=== PATIENT | male | born 1960 | race Caucasian/White ===

== ENCOUNTER → 2017-10-15 07:47 | Outpatient (CLI) | payer BC, SELFPAY ==
[2017-10-15 09:45] LABS: Add Manual Diff / Slide Review NO; Basophils Percent Auto 0.6 % (0-2); Eosinophils Percent Auto 2.9 % (2-4); Hematocrit 42.5 % (41-53); Hemoglobin 14.3 g/dL (13.5-17.5); Lymphocytes Percent Auto 23.8 % (25-40); Mean Corpuscular HGB Conc 33.6 % (30-36); Mean Corpuscular Hemoglobin 31.5 PG (26-34); Mean Corpuscular Volume 93.7 fL (80-100); Monocytes Percent Auto 7.4 % (3-14); Neutrophils Absolute Auto 5800 /uL (3000-5900); Neutrophils Percent Auto 65.3 % (50-75); Platelet Count 264 X10^3/uL (150-400); Red Blood Cell Count 4.54 X10^6/uL (4.5-5.9); Red Cell Distribution Width 13.9 % (11.6-14.8); White Blood Cell Count 8.9 X10^3/uL (4.5-11.0)
[2017-10-15 10:18] LABS: Prostate Specific Antigen Scrn 0.905 ng/mL (0.1-4.0); Thyroid Stimulating Hormone 2.57 uIU/mL (0.47-4.68)
== END ==
PROVIDERS: PCP Family Medicine; Visit Provider Family Medicine
DX: E11.40 Type 2 diabetes mellitus with diabetic neuropathy, unspecified (principal); Z79.4 Long term (current) use of insulin; I10 Essential (primary) hypertension; E78.5 Hyperlipidemia, unspecified; Z12.5 Encounter for screening for malignant neoplasm of prostate
CPT/HCPCS: 36415; 84443; 85025; G0103

== ENCOUNTER → 2017-10-19 17:36 | Outpatient (CLI) | payer BC, SELFPAY ==
[2017-10-19 18:18] LABS: Alanine Aminotransferase 35 IU/L (21-72); Albumin 4.2 g/dL (3.5-5.0); Albumin Globulin Ratio 1.4 (1.0-2.8); Alkaline Phosphatase 53 U/L (38-126); Aspartate Aminotransferase 32 IU/L (17-59); BUN Creatinine Ratio 35.7 (6-22); Bilirubin Total 0.5 mg/dL (0.2-1.3); Blood Urea Nitrogen 25 mg/dL (9-20); Calcium 9.6 mg/dL (8.4-10.2); Carbon Dioxide 26 mmol/L (22-32); Chloride 105 mmol/L (98-107); Cholesterol 160 mg/dL (140-199); Estimated Glomerular Filt Rate > 60.0 mL/min (>60); Glucose 71 mg/dL (70-100); HDL Cholesterol 74 mg/dL (40-60); HEMOLYSIS 22 (0-50); LDL Cholesterol Calculated 61 mg/dL (<100); Potassium 4.5 mmol/L (3.4-5.1); Sodium 140 mmol/L (137-145); Total Protein 7.2 g/dL (6.3-8.2); Triglycerides 124 mg/dL (35-150)
[2017-10-19 18:19] LABS: Hemoglobin A1C% w Est Avg Glu 6.3 % (4.0-6.0)
== END ==
PROVIDERS: PCP Family Medicine; Visit Provider Family Medicine
DX: I10 Essential (primary) hypertension (principal); E11.40 Type 2 diabetes mellitus with diabetic neuropathy, unspecified; Z79.4 Long term (current) use of insulin; E78.5 Hyperlipidemia, unspecified
CPT/HCPCS: 80053; 80061; 83036

== ENCOUNTER → 2018-03-13 15:31 | Outpatient (CLI) | payer BC, SELFPAY | PROVIDERS: PCP Family Medicine; Visit Provider Physician Assistant | DX: L97.519 Non-pressure chronic ulcer of other part of right foot with unspecified severity (principal) | CPT/HCPCS: 87070; 87075; 87077; 87147; 87186; 87205 ==

== ENCOUNTER → 2018-03-15 09:59 | Outpatient (CLI) | payer BC, SELFPAY | PROVIDERS: PCP Family Medicine; Referring Provider Physician Assistant; Visit Provider Family Medicine | DX: E11.621 Type 2 diabetes mellitus with foot ulcer (principal); L97.516 Non-pressure chronic ulcer of other part of right foot with bone involvement without evidence of necrosis | CPT/HCPCS: 11042; 99213; 99214 ==

== ENCOUNTER → 2018-03-17 10:55 | Outpatient (CLI) | payer BC, SELFPAY ==
--- NOTE | 2018-03-17 | DI.RAD.S_ITS ---
PROCEDURE: XR TOE RT MIN 2V INDICATIONS: RIGHT TOE PAIN TECHNIQUE: Single views of the right second toe(s) acquired. COMPARISON: [facility], , TOE MINIMUM 2 VIEWS RIGHT, 05/28/2016, 10:15. FINDINGS: Bones: Mild cortical irregularity is present at the distal aspect of the distal phalanx of the right second digit. However, this is incompletely characterized on Limited anterior view. Soft tissues: No suspicious soft tissue densities. IMPRESSION: 1. Questionable cortical irregularity of the distal phalanx of the right second digit; however lateral view would be helpful to further characterize findings evaluate for true bony abnormality. Alternatively, if there is a high clinical suspicion for osteomyelitis, MRI of the foot with and without contrast is recommended. Dictated by: Kristine Recinos M.D. on 03/17/2018 at 13:33 Approved by: Kristine Recinos M.D. on 03/17/2018 at 13:35
[2018-03-17 12:07] LABS: Add Manual Diff / Slide Review NO; Basophils Percent Auto 0.6 % (0-2); Eosinophils Percent Auto 2.1 % (2-4); Hematocrit 45.1 % (41-53); Hemoglobin 15.4 g/dL (13.5-17.5); Lymphocytes Percent Auto 25.9 % (25-40); Mean Corpuscular HGB Conc 34.1 % (30-36); Mean Corpuscular Hemoglobin 32.1 PG (26-34); Mean Corpuscular Volume 94.1 fL (80-100); Monocytes Percent Auto 7.8 % (3-14); Neutrophils Absolute Auto 5800 /uL (1500-7000); Neutrophils Percent Auto 63.6 % (50-75); Platelet Count 291 X10^3/uL (150-400); Red Cell Distribution Width 13.3 % (11.6-14.8); White Blood Cell Count 9.1 X10^3/uL (4.5-11.0)
[2018-03-17 12:22] LABS: Hemoglobin A1C% w Est Avg Glu 6.9 % (4.0-6.0)
[2018-03-17 12:23] LABS: Erythrocyte Sedimentation Rate 8 MM/HR (0-15)
[2018-03-17 12:25] LABS: Alanine Aminotransferase 43 IU/L (21-72); Albumin 4.6 g/dL (3.5-5.0); Albumin Globulin Ratio 1.4 (1.0-2.8); Alkaline Phosphatase 56 U/L (38-126); Aspartate Aminotransferase 38 IU/L (17-59); BUN Creatinine Ratio 26.4 (6-22); Bilirubin Total 0.6 mg/dL (0.2-1.3); Blood Urea Nitrogen 29 mg/dL (9-20); Calcium 10.3 mg/dL (8.4-10.2); Carbon Dioxide 25 mmol/L (22-32); Chloride 99 mmol/L (98-107); Estimated Glomerular Filt Rate > 60.0 mL/min (>60); Globulin 3.3 g/dL (1.7-4.1); Glucose 132 mg/dL (70-100); HEMOLYSIS < 15 (0-50); Potassium 4.8 mmol/L (3.4-5.1); Sodium 139 mmol/L (137-145); Total Protein 7.9 g/dL (6.3-8.2)
[2018-03-17 12:26] LABS: C-Reactive Protein Quant < 0.5 mg/dL (<1.0)
[2018-03-17 12:30] LABS: Prealbumin 36.3 mg/dL (17.6-36.0)
== END ==
PROVIDERS: PCP Family Medicine; Visit Provider Family Medicine
DX: E11.621 Type 2 diabetes mellitus with foot ulcer (principal)
CPT/HCPCS: 36415; 73660; 80053; 83036; 84134; 85025; 85651; 86140

== ENCOUNTER → 2018-03-22 09:51 | Outpatient (CLI) | payer BC, SELFPAY | PROVIDERS: PCP Family Medicine; Visit Provider Family Medicine | DX: E11.622 Type 2 diabetes mellitus with other skin ulcer (principal); E11.40 Type 2 diabetes mellitus with diabetic neuropathy, unspecified; L97.416 Non-pressure chronic ulcer of right heel and midfoot with bone involvement without evidence of necrosis | CPT/HCPCS: 11042 ==

== ENCOUNTER → 2018-03-29 09:58 | Outpatient (CLI) | payer BC, SELFPAY | PROVIDERS: PCP Family Medicine; Visit Provider Family Medicine | DX: E11.621 Type 2 diabetes mellitus with foot ulcer (principal); E11.40 Type 2 diabetes mellitus with diabetic neuropathy, unspecified; L97.516 Non-pressure chronic ulcer of other part of right foot with bone involvement without evidence of necrosis; Z79.2 Long term (current) use of antibiotics | CPT/HCPCS: 36415; 80048; 97597 ==

== ENCOUNTER → 2018-03-29 10:59 | Outpatient (CLI) | payer BC, SELFPAY | PROVIDERS: PCP Family Medicine; Visit Provider Family Medicine | DX: Z79.2 Long term (current) use of antibiotics (principal) ==

== ENCOUNTER → 2018-03-29 11:02 | Outpatient (CLI) | payer BC, SELFPAY ==
[2018-03-29 11:49] LABS: BUN Creatinine Ratio 23.8 (6-22); Blood Urea Nitrogen 31 mg/dL (9-20); Calcium 11.9 mg/dL (8.4-10.2); Carbon Dioxide 23 mmol/L (22-32); Chloride 102 mmol/L (98-107); Estimated Glomerular Filt Rate 56.7 mL/min (>60); Glucose 147 mg/dL (70-100); HEMOLYSIS < 15 (0-50); Potassium 5.9 mmol/L (3.4-5.1); Sodium 140 mmol/L (137-145)
== END ==
PROVIDERS: PCP Family Medicine; Visit Provider Family Medicine
DX: Z79.2 Long term (current) use of antibiotics (principal)
CPT/HCPCS: 36415; 80048

== ENCOUNTER → 2018-04-03 10:17 | Outpatient (CLI) | payer BC, SELFPAY ==
[2018-04-03 11:39] LABS: BUN Creatinine Ratio 29.1 (6-22); Blood Urea Nitrogen 32 mg/dL (9-20); Estimated Glomerular Filt Rate > 60.0 mL/min (>60)
== END ==
PROVIDERS: Family Provider Family Medicine; PCP Family Medicine; Visit Provider Family Medicine
DX: L97.519 Non-pressure chronic ulcer of other part of right foot with unspecified severity (principal); E11.621 Type 2 diabetes mellitus with foot ulcer
CPT/HCPCS: 36415; 82565; 84520

== ENCOUNTER → 2018-04-05 08:07 | Outpatient (CLI) | payer BC, SELFPAY ==
--- NOTE | 2018-04-05 | DI.MRI.S_ITS ---
PROCEDURE: MR FOOT RT WO/W CON INDICATIONS: Non-pressure chronic ulcer of other part of right TECHNIQUE: Noncontrast sagittal T1 spin echo and T2 fast spin echo with fat saturation, long-axis T1 spin echo and T2 fast spin echo with fat saturation; short-axis T1 spin echo, proton density fast spin echo, and T2 fast spin echo with fat saturation through the forefoot. Post-contrast short axis, long axis, and sagittal T1 spin echo with fat saturation through the forefoot. COMPARISON: None. FINDINGS: Image quality: Excellent. Bones and joints: There is marrow edema involving second middle and distal phalanges suspicious for osteomyelitis in second toe. No gross bone erosive changes are seen. No other area of abnormal marrow signal is noted. The sesamoid bones appear in expected positions, without internal edema. Osteoarthritic changes throughout forefoot joint are seen. Osteophytic change is also noted as well visualized portion of the midfoot joints. No intraosseous lesions. Soft tissues: Ulceration over the plantar aspect of second middle and distal phalanges is seen with mild soft tissue enhancement in this area consistent with cellulitis. No discrete drainable fluid collection is identified. The visualized plantar foot muscles demonstrate normal signal and bulk. Visualized flexor and extensor tendons appear intact, without tenosynovitis. The distal insertions of the peroneus brevis and longus tendons appear intact. The principal Lisfranc ligament appears intact. No soft tissue ganglion cysts or bursal fluid collections. Sagittal images demonstrate no evidence for plantar plate tears. IMPRESSION: 1. Ulceration over the plantar aspect of distal second toe with surrounding soft tissue cellulitis. No drainable fluid collection or gross soft tissue mass. 2. Suggestion of osteomyelitis involving adjacent second middle and distal phalanges. No bone erosion. No fracture or dislocation. Dictated by: Luiz Combs M.D. on 04/05/2018 at 16:25 Approved by: Luiz Combs M.D. on 04/05/2018 at 16:28
[2018-04-05 13:05] LABS: BUN Creatinine Ratio 26.7 (6-22); Blood Urea Nitrogen 24 mg/dL (9-20); Calcium 9.6 mg/dL (8.4-10.2); Carbon Dioxide 25 mmol/L (22-32); Chloride 100 mmol/L (98-107); Estimated Glomerular Filt Rate > 60.0 mL/min (>60); Glucose 86 mg/dL (70-100); HEMOLYSIS < 15 (0-50); Potassium 5.1 mmol/L (3.4-5.1); Sodium 137 mmol/L (137-145)
[2018-04-05 13:17] LABS: Hemoglobin A1C% w Est Avg Glu 6.7 % (4.0-6.0)
== END ==
PROVIDERS: Family Provider Family Medicine; PCP Family Medicine; Visit Provider Family Medicine
DX: E11.621 Type 2 diabetes mellitus with foot ulcer (principal); L97.516 Non-pressure chronic ulcer of other part of right foot with bone involvement without evidence of necrosis; E11.40 Type 2 diabetes mellitus with diabetic neuropathy, unspecified; I10 Essential (primary) hypertension
CPT/HCPCS: 36415; 73720; 80048; 83036; A9579

== ENCOUNTER → 2018-04-05 10:50 | Outpatient (CLI) | payer BC, SELFPAY | PROVIDERS: Family Provider Family Medicine; PCP Family Medicine; Visit Provider Family Medicine | DX: E11.621 Type 2 diabetes mellitus with foot ulcer (principal); E11.40 Type 2 diabetes mellitus with diabetic neuropathy, unspecified; L97.516 Non-pressure chronic ulcer of other part of right foot with bone involvement without evidence of necrosis; L84 Corns and callosities | CPT/HCPCS: 97597; 99213 ==

== ENCOUNTER → 2018-04-12 13:31 | Outpatient (CLI) | payer BC, SELFPAY | PROVIDERS: Family Provider Family Medicine; PCP Family Medicine; Visit Provider Family Medicine | DX: Z48.817 Encounter for surgical aftercare following surgery on the skin and subcutaneous tissue (principal); L03.031 Cellulitis of right toe; E11.9 Type 2 diabetes mellitus without complications; I10 Essential (primary) hypertension | CPT/HCPCS: 99213 ==

== ENCOUNTER → 2018-04-19 13:33 | Outpatient (CLI) | payer BC, SELFPAY ==
[2018-04-19 15:57] LABS: Blood Urea Nitrogen 15 mg/dL (9-20); Calcium 9.5 mg/dL (8.4-10.2); Carbon Dioxide 24 mmol/L (22-32); Chloride 101 mmol/L (98-107); Estimated Glomerular Filt Rate > 60.0 mL/min (>60); Glucose 92 mg/dL (70-100); HEMOLYSIS < 15 (0-50); Sodium 136 mmol/L (137-145)
== END ==
PROVIDERS: Family Medicine; Family Provider Family Medicine; PCP Family Medicine; Visit Provider Podiatrist
DX: E87.5 Hyperkalemia (principal); Z79.2 Long term (current) use of antibiotics
CPT/HCPCS: 36415; 80048

== ENCOUNTER → 2018-04-24 14:22 | Outpatient (CLI) | payer BC, SELFPAY ==
[2018-04-27 19:35] LABS: Fecal Immunochemical Test NOT DETECTED
== END ==
PROVIDERS: PCP Family Medicine; Visit Provider Family Medicine
DX: Z12.11 Encounter for screening for malignant neoplasm of colon (principal); Z12.12 Encounter for screening for malignant neoplasm of rectum
CPT/HCPCS: 82274

== ENCOUNTER 2018-05-04 06:19 | Day surgery (SDC) | payer BC, SELFPAY ==
[2018-04-21 13:17] VITALS: BMI 37.4
[2018-05-04] VITALS (7 sets, daily range): BP systolic 138–165; BP diastolic 77–91; PULSE 58–71; RESP 13–17; TEMP 36.1–36.9; O2SAT 94–97; BMI 37.4
--- NOTE | 2018-05-04 | PATH_ITS ---
[facility] Accession Number: [id number] . 01 Material submitted: . RIGHT 2ND TOE, DISTAL PHALANX . 01 Clinical history: . OSTEOMYELITIS . 02 Diagnosis: Right Second Toe, Distal Phalanx, Disarticulation: 1. Mild chronic inflammation and reactive osseous and soft tissue changes. 2. Skin margin and proximal bone appear viable. 3. Negative for granulocytic inflammation/acute osteomyelitis. MRV/05/09/2018 . 02 Electronically signed: . Bindu Garces MD, Pathologist NPI- [id number] . 01 Gross description: . Received in formalin, labeled right second toe distal phalanx osteomyelitis, is a disarticulated toe (2.8 cm AP, 1.9 cm SI, 1.9 cm ML). The toenail is present. A pineda-dasilva crusted over ulcer (0.4 x 0.2 cm) is identified on the supramedial aspect of the anterior tip of the toe located 0.8 cm inferior to the toenail, 3.3 cm from the superior and 1.5 cm from the inferior skin and soft tissue resection margins. The remaining skin is brown smooth and shiny. The underlying bone is hard and cannot be sliced with a scalpel. Ink code: black-superior; orange-inferior. Section code: (A1) skin and soft tissue resection margins, food service representative; (A2) proximal bone, food service representative serial sections; (A3) ulcer, food service representative serial sections; (A4) bone underlying ulcer, food service representative serial section. Note: The bone sections have been decalcified. ([id number]) /[facility] . 02 Pathologist provided ICD-10: M86.671 . 02 CPT . 301632 Performed at: 01 [facility] [address] [place] [address], [place], [place] [id number] MD Sy Canseco MD Phone: [phone] Performed at: [facility] [address] [place], [place] [id number] MD Bindu Garces MD Phone: [phone]
[2018-05-04] MEDS: LACTATED RINGERS 1,000 ML 42 ML IV (07:32)
[2018-05-04] MEDS: CEFAZOLIN 2 GM/100 ML FROZ.PIGGY IV (07:40)
[2018-05-04] MEDS: LIDOCAINE 2% W/EPI INJ 6 ML INJ (08:23)
[2018-05-04] MEDS: LIDOCAINE 2% INJ SDV 5 ML INJ (08:25)
[2018-05-04] MEDS: BUPIVACAINE 0.5% (PF) VIAL 8 ML INJ (08:31)
--- NOTE | 2018-05-04 08:43 | PM.OP.1 ---
Procedure & Clinicians Procedure: Partial amputation, 2nd toe, right foot Hammertoe repair, PIPJ, 3rd toe, right foot Same procedure as scheduled: Yes Indications: osteomyelitis 2nd toe, hammertoe 3rd toe, all on right foot Surgeon: Jean Reynolds Click Yes if Unassisted: Yes Anesthesia Type: General and Local Operative Notes Closure Type: primary Specimen(s): other (distal 2nd toe right foot to pathology) Estimated Blood Loss (mL): 3 Blood products transfused: none Tourniquet time (min): 0 Procedure in detail: Indications: The patient has suffered osteomyelitis in the distal aspect of his 2nd toe right due to a chronic diabetic neuropathic ulcer. Although the wound was closed, decision was made for definitive amputation of the osteomyelitic bone. Also, chronic 3rd hammertoe was corrected at the same setting. Operation: The patient was taken from the day surgery area back to the operating room after having been given IV antibiotic prophylaxis. He was placed on the OR table in the supine position. General anesthesia was induced by the anesthesiologist, followed by local infiltration of 50 50 lidocaine. The foot was then prepped and draped in the usual sterile fashion from toe to knee. Procedure 1 distal amputation, 2nd toe right foot Attention was directed toward the base of the 2nd toe. Just proximal to the PIP joint a modified racquet shaped incision was created. A longer plantar flap was created. Dissection was carried down to the extensor and flexor tendons which were put under tension and severed. There was very little bleeding. Once the proximal phalanx was identified the distal 6 mm was transversely section with the bone-cutting forceps. The bone was found to be very hard and brittle. The wound was irrigated. Closure was then performed with combination of horizontal mattress and simple interrupted sutures of 3 0 nylon. Procedure to hammertoe repair, 3rd toe right Attention was then directed for the 3rd toe. A dorsal midline incision was made centered over the PIP joint. Dissection was carried down the extensor tendon which was transversely section delivering the PIP joint. Collateral ligaments were released and then the head of the proximal phalanx removed with a bone-cutting forceps. The wound was irrigated with antibiotic solution. Extensor tendon was repaired with 4 O Vicryl and then the skin closed with 4 0 nylon. Postop block of 0.5% Marcaine plain was administered to both wounds. Sterile compression bandage was then applied. The patient tolerated the procedures and anesthesia well without any apparent complications. He left the OR with vital signs stable and digital perfusion intact. He will be allowed weight-bearing, protected in a postop shoe. Will be seen for follow-up check next week in the [place] office. Complications: none Condition: stable Disposition: same day surgery Plan for aftercare: Follow-up visit already set for the [place] office next week.
--- NOTE | 2018-05-04 09:15 | SUR.PHASEII ---
PT ARRIVED TO PHASE II VIA STRETCHER. PT SITTING UP, ALERT AND TALKING TO RN. PT DRINKING COFFEE. PT DENIES ANY PAIN/DISCOMFORT OR NAUSEA. DRSG TO SURGICAL FOOT C/D/I. PT ABLE TO MOVE FOOT/TOES, +SENSTATION AND WARM TO TOUCH. PT AWAITING ARRIVAL OF RIDE AT THIS TIME. BED IN LOWEST POSITION AND CALL LIGHT GIVEN TO PT. PT APPEARS COMFORTABLE AT THIS TIME.
== END 2018-05-04 10:13 ==
LOC: OR 06:20
PROVIDERS: Family Provider Family Medicine; PCP Family Medicine; Visit Provider Podiatrist
PROC: (CPT 28285; principal; 2018-05-04 07:45)
PROC: (CPT 28285; 2018-05-04 07:45)
DX: M86.671 Other chronic osteomyelitis, right ankle and foot (principal); M20.41 Other hammer toe(s) (acquired), right foot; L97.519 Non-pressure chronic ulcer of other part of right foot with unspecified severity; E11.621 Type 2 diabetes mellitus with foot ulcer; E11.40 Type 2 diabetes mellitus with diabetic neuropathy, unspecified; Z79.4 Long term (current) use of insulin
CPT/HCPCS: 28285; 28825; J0690; J2405; J2704; J3010

== ENCOUNTER → 2018-06-02 09:59 | Outpatient (CLI) | payer BC, SELFPAY ==
[2018-06-02 10:41] LABS: Add Manual Diff / Slide Review NO; Basophils Absolute Auto 100 /uL (0-100); Basophils Percent Auto 0.8 % (0-2); Eosinophils Absolute Auto 200 /uL (0-450); Eosinophils Percent Auto 2.7 % (2-4); Hematocrit 43.4 % (41-53); Hemoglobin 14.6 g/dL (13.5-17.5); Lymphocytes Absolute Auto 2200 /uL (1100-4500); Lymphocytes Percent Auto 26.6 % (25-40); Mean Corpuscular HGB Conc 33.7 % (30-36); Mean Corpuscular Hemoglobin 32.1 PG (26-34); Mean Corpuscular Volume 95.1 fL (80-100); Monocytes Absolute Auto 800 /uL (0-900); Monocytes Percent Auto 9.6 % (3-14); Neutrophils Absolute Auto 5000 /uL (1500-7000); Neutrophils Percent Auto 60.3 % (50-75); Platelet Count 264 X10^3/uL (150-400); Red Blood Cell Count 4.57 X10^6/uL (4.5-5.9); Red Cell Distribution Width 14.4 % (11.6-14.8); White Blood Cell Count 8.2 X10^3/uL (4.5-11.0)
[2018-06-02 11:23] LABS: Alanine Aminotransferase 32 IU/L (21-72); Albumin 4.7 g/dL (3.5-5.0); Albumin Globulin Ratio 1.4 (1.0-2.8); Alkaline Phosphatase 57 U/L (38-126); Aspartate Aminotransferase 32 IU/L (17-59); Blood Urea Nitrogen 27 mg/dL (9-20); Calcium 9.5 mg/dL (8.4-10.2); Carbon Dioxide 27 mmol/L (22-32); Chloride 98 mmol/L (98-107); Cholesterol 205 mg/dL (140-199); Estimated Glomerular Filt Rate > 60.0 mL/min (>60); Globulin 3.3 g/dL (1.7-4.1); Glucose 174 mg/dL (70-100); HDL Cholesterol 92 mg/dL (40-60); HEMOLYSIS < 15 (0-50); LDL Cholesterol Calculated 88 mg/dL (<100); Potassium 4.9 mmol/L (3.4-5.1); Sodium 137 mmol/L (137-145); Triglycerides 127 mg/dL (35-150)
== END ==
PROVIDERS: PCP Family Medicine; Visit Provider Family Medicine
DX: E11.40 Type 2 diabetes mellitus with diabetic neuropathy, unspecified (principal); I10 Essential (primary) hypertension; I73.9 Peripheral vascular disease, unspecified
CPT/HCPCS: 36415; 80053; 80061; 85025

== ENCOUNTER → 2018-07-07 09:01 | Outpatient (CLI) | payer BC, SELFPAY ==
[2018-07-07 10:04] LABS: Hemoglobin A1C% w Est Avg Glu 5.6 % (4.0-6.0)
[2018-07-07 10:27] LABS: BUN Creatinine Ratio 23.8 (6-22); Blood Urea Nitrogen 19 mg/dL (9-20); Calcium 9.4 mg/dL (8.4-10.2); Carbon Dioxide 27 mmol/L (22-32); Chloride 102 mmol/L (98-107); Estimated Glomerular Filt Rate > 60.0 mL/min (>60); Glucose 150 mg/dL (70-100); HEMOLYSIS < 15 (0-50); Potassium 4.8 mmol/L (3.4-5.1); Sodium 137 mmol/L (137-145)
== END ==
PROVIDERS: PCP Family Medicine; Visit Provider Family Medicine
DX: E11.40 Type 2 diabetes mellitus with diabetic neuropathy, unspecified (principal)
CPT/HCPCS: 36415; 80048; 83036

== ENCOUNTER → 2018-11-01 10:41 | Outpatient (CLI) | payer BC, SELFPAY ==
[2018-11-01 11:50] LABS: BUN Creatinine Ratio 31.3 (6-22); Blood Urea Nitrogen 25 mg/dL (9-20); Calcium 9.9 mg/dL (8.4-10.2); Carbon Dioxide 20 mmol/L (22-32); Chloride 103 mmol/L (98-107); Estimated Glomerular Filt Rate > 60.0 mL/min (>60); Glucose 64 mg/dL (70-100); HEMOLYSIS < 15 (0-50); Potassium 4.9 mmol/L (3.4-5.1); Sodium 139 mmol/L (137-145)
== END ==
PROVIDERS: PCP Family Medicine; Visit Provider Family Medicine
DX: I10 Essential (primary) hypertension (principal); E11.40 Type 2 diabetes mellitus with diabetic neuropathy, unspecified
CPT/HCPCS: 36415; 80048; 83036

== ENCOUNTER → 2019-03-09 10:23 | Outpatient (CLI) | payer BC, SELFPAY ==
[2019-03-09 11:21] LABS: Hemoglobin A1C% w Est Avg Glu 6.7 % (4.0-6.0)
[2019-03-09 11:48] LABS: Creatinine Urine Random 56.3 mg/dL
[2019-03-09 11:56] LABS: BUN Creatinine Ratio 32.2 (6-22); Blood Urea Nitrogen 29 mg/dL (9-20); Calcium 9.3 mg/dL (8.4-10.2); Carbon Dioxide 25 mmol/L (22-32); Chloride 102 mmol/L (98-107); Estimated Glomerular Filt Rate > 60.0 mL/min (>60); Glucose 189 mg/dL (70-100); HEMOLYSIS < 15 (0-50); Potassium 4.9 mmol/L (3.4-5.1); Sodium 137 mmol/L (137-145)
[2019-03-09 12:18] LABS: Microalbumi Creatinin Ratio Ur 1420.9 ug/mg CR (<30)
== END ==
PROVIDERS: PCP Family Medicine; Visit Provider Family Medicine
DX: E11.40 Type 2 diabetes mellitus with diabetic neuropathy, unspecified (principal); I10 Essential (primary) hypertension
CPT/HCPCS: 36415; 80048; 82043; 82570; 83036

== ENCOUNTER → 2019-05-16 18:11 | Outpatient (CLI) | payer BC, SELFPAY ==
[2019-05-16 18:48] LABS: Influenza A - CEPHEID Flu A POSITIVE (NEGATIVE); Influenza B - CEPHEID Flu B NEGATIVE (NEGATIVE)
== END ==
PROVIDERS: PCP Family Medicine; Visit Provider Physician Assistant
DX: R68.89 Other general symptoms and signs (principal)
CPT/HCPCS: 87502

== ENCOUNTER → 2019-07-11 08:45 | Outpatient (CLI) | payer BC, SELFPAY ==
[2019-07-11 10:45] LABS: Hemoglobin A1C% w Est Avg Glu 6.2 % (4.0-6.0)
[2019-07-11 11:13] LABS: Alanine Aminotransferase 26 IU/L (<50); Albumin 4.2 g/dL (3.5-5.0); Albumin Globulin Ratio 1.2 (1.0-2.8); Alkaline Phosphatase 55 U/L (38-126); Aspartate Aminotransferase 32 IU/L (17-59); BUN Creatinine Ratio 41.6 (6-22); Bilirubin Total 0.3 mg/dL (0.2-1.3); Blood Urea Nitrogen 32 mg/dL (9-20); Calcium 9.3 mg/dL (8.4-10.2); Carbon Dioxide 23 mmol/L (22-32); Chloride 106 mmol/L (98-107); Cholesterol 174 mg/dL (140-199); Estimated Glomerular Filt Rate > 60.0 mL/min (>60); Globulin 3.5 g/dL (1.7-4.1); Glucose 120 mg/dL (80-110); HDL Cholesterol 83 mg/dL (40-60); HEMOLYSIS < 15 (0-50); LDL Cholesterol Calculated 74 mg/dL (<100); Potassium 4.4 mmol/L (3.4-5.1); Sodium 138 mmol/L (137-145); Total Protein 7.7 g/dL (6.3-8.2); Triglycerides 87 mg/dL (35-150)
== END ==
PROVIDERS: PCP Family Medicine; Referring Provider Family Medicine; Visit Provider Family Medicine
DX: E11.40 Type 2 diabetes mellitus with diabetic neuropathy, unspecified (principal); E78.5 Hyperlipidemia, unspecified; I10 Essential (primary) hypertension
CPT/HCPCS: 36415; 80053; 80061; 83036

== ENCOUNTER → 2020-02-19 09:31 | Outpatient (CLI) | payer SELFPAY ==
[2020-02-19 11:58] LABS: Hemoglobin A1C% w Est Avg Glu 6.5 % (4.0-6.0)
[2020-02-19 12:00] LABS: Creatinine Urine Random 109.9 mg/dL
[2020-02-19 12:03] LABS: BUN Creatinine Ratio 21.8 (6-22); Blood Urea Nitrogen 17 mg/dL (9-20); Calcium 9.1 mg/dL (8.4-10.2); Carbon Dioxide 27 mmol/L (22-32); Chloride 103 mmol/L (98-107); Estimated Glomerular Filt Rate > 60.0 mL/min (>60); Glucose 138 mg/dL (80-110); HEMOLYSIS < 15 (0-50); Potassium 4.7 mmol/L (3.4-5.1); Sodium 136 mmol/L (137-145)
[2020-02-19 12:24] LABS: Microalbumi Creatinin Ratio Ur 200.1 ug/mg CR (<30)
== END ==
PROVIDERS: PCP Family Medicine; Referring Provider Family Medicine; Visit Provider Family Medicine
DX: E11.40 Type 2 diabetes mellitus with diabetic neuropathy, unspecified (principal); I10 Essential (primary) hypertension; N18.2 Chronic kidney disease, stage 2 (mild)
CPT/HCPCS: 36415; 80048; 82043; 82570; 83036

== ENCOUNTER → 2020-08-18 13:49 | Outpatient (CLI) | payer SELFPAY ==
[2020-08-18 15:20] LABS: Hemoglobin A1C% w Est Avg Glu 6.4 % (4.0-6.0)
[2020-08-18 16:35] LABS: Alanine Aminotransferase 36 IU/L (<50); Albumin 4.1 g/dL (3.5-5.0); Albumin Globulin Ratio 1.4 (1.0-2.8); Alkaline Phosphatase 55 U/L (38-126); Aspartate Aminotransferase 34 IU/L (17-59); BUN Creatinine Ratio 40.3 (6-22); Bilirubin Total 0.3 mg/dL (0.2-1.3); Blood Urea Nitrogen 31 mg/dL (9-20); Calcium 9.3 mg/dL (8.4-10.2); Carbon Dioxide 25 mmol/L (22-32); Chloride 105 mmol/L (98-107); Cholesterol 160 mg/dL (140-199); Estimated Glomerular Filt Rate > 60.0 mL/min (>60); Globulin 2.9 g/dL (1.7-4.1); Glucose 121 mg/dL (80-110); HDL Cholesterol 87 mg/dL (40-60); HEMOLYSIS < 15 (0-50); LDL Cholesterol Calculated 53 mg/dL (<100); Sodium 135 mmol/L (137-145); Triglycerides 102 mg/dL (35-150)
[2020-08-18 16:52] LABS: Microalbumin Urine Random 16.1 mg/dL (0-1.6)
[2020-08-18 16:55] LABS: Creatinine Urine Random 84.9 mg/dL; Microalbumi Creatinin Ratio Ur 189.6 ug/mg CR (<30)
== END ==
PROVIDERS: PCP Family Medicine; Referring Provider Family Medicine; Visit Provider Family Medicine
DX: E11.40 Type 2 diabetes mellitus with diabetic neuropathy, unspecified (principal); E78.2 Mixed hyperlipidemia; I10 Essential (primary) hypertension; N18.2 Chronic kidney disease, stage 2 (mild)
CPT/HCPCS: 36415; 80053; 80061; 82043; 82570; 83036

== ENCOUNTER → 2021-10-19 12:18 | Outpatient (CLI) | payer BC, SELFPAY ==
[2021-10-19 14:15] LABS: Hemoglobin A1C% w Est Avg Glu 7.8 % (4.0-6.0)
[2021-10-19 15:00] LABS: Alanine Aminotransferase 30 IU/L (<50); Albumin 4.2 g/dL (3.5-5.0); Albumin Globulin Ratio 1.4 (1.0-2.8); Alkaline Phosphatase 50 U/L (38-126); Aspartate Aminotransferase 38 IU/L (17-59); BUN Creatinine Ratio 15.9 (6-22); Bilirubin Total 0.6 mg/dL (0.2-1.3); Blood Urea Nitrogen 13 mg/dL (9-20); Calcium 8.7 mg/dL (8.4-10.2); Carbon Dioxide 29 mmol/L (22-32); Chloride 94 mmol/L (98-107); Cholesterol 155 mg/dL (140-199); Estimated Glomerular Filt Rate > 60 mL/min (>60); Globulin 2.9 g/dL (1.7-4.1); Glucose 109 mg/dL (80-110); HDL Cholesterol 81 mg/dL (40-60); HEMOLYSIS < 15 (0-50); LDL Cholesterol Calculated 58 mg/dL (<100); Potassium 4.4 mmol/L (3.4-5.1); Sodium 130 mmol/L (137-145); Total Protein 7.1 g/dL (6.3-8.2); Triglycerides 80 mg/dL (35-150)
[2021-10-19 18:36] LABS: Creatinine Urine Random 68.4 mg/dL
[2021-10-19 19:27] LABS: Microalbumi Creatinin Ratio Ur 859.6 ug/mg CR (<30); Microalbumin Urine Random 58.8 mg/dL (0-1.6)
== END ==
PROVIDERS: PCP Pediatrics; Referring Provider Family Medicine; Visit Provider Family Medicine
DX: E11.40 Type 2 diabetes mellitus with diabetic neuropathy, unspecified (principal); E78.2 Mixed hyperlipidemia; I12.9 Hypertensive chronic kidney disease with stage 1 through stage 4 chronic kidney disease, or unspecified chronic kidney disease; N18.2 Chronic kidney disease, stage 2 (mild); I73.9 Peripheral vascular disease, unspecified
CPT/HCPCS: 36415; 80053; 80061; 82043; 82570; 83036

== ENCOUNTER → 2021-12-04 11:34 | Outpatient (CLI) | payer BC, SELFPAY ==
[2021-12-04 13:06] LABS: BUN Creatinine Ratio 36.5 (6-22); Blood Urea Nitrogen 27 mg/dL (9-20); Calcium 8.9 mg/dL (8.4-10.2); Carbon Dioxide 28 mmol/L (22-32); Chloride 104 mmol/L (98-107); Estimated Glomerular Filt Rate > 60 mL/min (>60); Glucose 131 mg/dL (80-110); HEMOLYSIS < 15 (0-50); Potassium 5.1 mmol/L (3.4-5.1); Sodium 136 mmol/L (137-145)
== END ==
PROVIDERS: PCP Pediatrics; Referring Provider Pediatrics; Visit Provider Pediatrics
DX: E87.1 Hypo-osmolality and hyponatremia (principal); I10 Essential (primary) hypertension; N18.2 Chronic kidney disease, stage 2 (mild)
CPT/HCPCS: 36415; 80048

== ENCOUNTER → 2022-01-19 08:34 | Outpatient (CLI) | payer BC, SELFPAY | PROVIDERS: PCP Pediatrics; Referring Provider Family Medicine; Visit Provider Family Medicine | DX: E11.621 Type 2 diabetes mellitus with foot ulcer (principal); L97.512 Non-pressure chronic ulcer of other part of right foot with fat layer exposed; E11.51 Type 2 diabetes mellitus with diabetic peripheral angiopathy without gangrene; E11.40 Type 2 diabetes mellitus with diabetic neuropathy, unspecified; Z89.421 Acquired absence of other right toe(s); Z79.84 Long term (current) use of oral hypoglycemic drugs | CPT/HCPCS: 11042; 99204; 99213; 99214 ==

== ENCOUNTER → 2022-01-26 14:32 | Outpatient (CLI) | payer BC, SELFPAY | PROVIDERS: PCP Pediatrics; Referring Provider Pediatrics; Visit Provider Family Medicine | DX: E11.42 Type 2 diabetes mellitus with diabetic polyneuropathy (principal); Z86.31 Personal history of diabetic foot ulcer; E11.51 Type 2 diabetes mellitus with diabetic peripheral angiopathy without gangrene | CPT/HCPCS: 99212 ==

== ENCOUNTER → 2022-05-06 17:47 | Outpatient (CLI) | payer BC, SELFPAY ==
[2022-05-06 18:07] LABS: Add Manual Diff / Slide Review NO; Basophils Absolute Auto 100 /uL (0-100); Basophils Percent Auto 0.8 % (0-2); Eosinophils Absolute Auto 200 /uL (0-450); Eosinophils Percent Auto 1.9 % (2-4); Hematocrit 40.5 % (41-53); Hemoglobin 13.7 g/dL (13.5-17.5); Lymphocytes Absolute Auto 2200 /uL (1100-4500); Lymphocytes Percent Auto 24.9 % (25-40); Mean Corpuscular HGB Conc 33.9 % (30-36); Mean Corpuscular Hemoglobin 31.7 PG (26-34); Mean Corpuscular Volume 93.6 fL (80-100); Monocytes Absolute Auto 800 /uL (0-900); Monocytes Percent Auto 8.5 % (3-14); Neutrophils Absolute Auto 5800 /uL (1500-7000); Neutrophils Percent Auto 63.9 % (50-75); Platelet Count 259 X10^3/uL (150-400); Red Blood Cell Count 4.33 X10^6/uL (4.5-5.9); Red Cell Distribution Width 13.8 % (11.6-14.8)
[2022-05-06 18:40] LABS: BUN Creatinine Ratio 38.7 (6-22); Blood Urea Nitrogen 29 mg/dL (9-20); Calcium 9.8 mg/dL (8.4-10.2); Carbon Dioxide 22 mmol/L (22-32); Chloride 105 mmol/L (98-107); Estimated Glomerular Filt Rate > 60 mL/min (>60); Glucose 86 mg/dL (80-110); HEMOLYSIS < 15 (0-50); Potassium 4.4 mmol/L (3.4-5.1); Sodium 137 mmol/L (137-145)
[2022-05-06 19:01] LABS: Prostate Specific Antigen Scrn 0.824 ng/mL (0.1-4.0)
== END ==
PROVIDERS: PCP Family Medicine; Referring Provider Family Medicine; Visit Provider Family Medicine
DX: E11.40 Type 2 diabetes mellitus with diabetic neuropathy, unspecified (principal); I10 Essential (primary) hypertension; N18.2 Chronic kidney disease, stage 2 (mild); Z12.5 Encounter for screening for malignant neoplasm of prostate
CPT/HCPCS: 36415; 80048; 85025; G0103

== ENCOUNTER → 2022-08-19 10:00 | Outpatient (CLI) | payer BC, SELFPAY | PROVIDERS: PCP Family Medicine; Referring Provider Nurse Practitioner Family; Visit Provider Surgery | DX: E11.621 Type 2 diabetes mellitus with foot ulcer (principal); L97.512 Non-pressure chronic ulcer of other part of right foot with fat layer exposed; L84 Corns and callosities; E11.40 Type 2 diabetes mellitus with diabetic neuropathy, unspecified; Z79.84 Long term (current) use of oral hypoglycemic drugs; Z87.891 Personal history of nicotine dependence | CPT/HCPCS: 11042; 87070; 87075; 87077; 87147; 87205; 99213; 99214 ==

== ENCOUNTER → 2022-08-19 10:46 | Outpatient (CLI) | payer BC, SELFPAY ==
--- NOTE | 2022-08-19 10:48 | DI.RAD.S_ITS ---
PROCEDURE: XR FOOT RT MIN 3V INDICATIONS: Eval for osteo, wound to right hallux TECHNIQUE: 3 views of the foot were acquired. COMPARISON: [facility] [place], [place], XR TOE(S) RIGHT, 05/10/2018, 11:55. [facility], [place], FOOT 3V RIGHT, 05/13/2015, 9:45. FINDINGS: Bones: No visualized fracture. There is amputation of the 2nd digit distal to the proximal phalanx. Soft tissues: No tibiotalar joint effusion. Achilles tendon appears normal. IMPRESSION: No definitive changes of osteomyelitis. However, if concern persists, MRI bone scan is recommended. Dictated by: Josie Dawkins M.D. on 08/19/2022 at 16:37 Approved by: Josie Dawkins M.D. on 08/19/2022 at 16:38
== END ==
PROVIDERS: PCP Family Medicine; Referring Provider Surgery; Visit Provider Surgery
DX: S91.301A Unspecified open wound, right foot, initial encounter (principal)
CPT/HCPCS: 73630

== ENCOUNTER → 2022-08-25 13:40 | Outpatient (CLI) | payer BC, SELFPAY | PROVIDERS: PCP Family Medicine; Referring Provider Nurse Practitioner Family; Visit Provider Surgery | DX: E11.621 Type 2 diabetes mellitus with foot ulcer (principal); L97.512 Non-pressure chronic ulcer of other part of right foot with fat layer exposed; E11.42 Type 2 diabetes mellitus with diabetic polyneuropathy; L84 Corns and callosities | CPT/HCPCS: 99212; 99213 ==

== ENCOUNTER → 2022-09-14 15:13 | Outpatient (CLI) | payer BC, SELFPAY | PROVIDERS: PCP Family Medicine; Referring Provider Nurse Practitioner Family; Visit Provider Surgery | DX: E11.42 Type 2 diabetes mellitus with diabetic polyneuropathy (principal); Z86.31 Personal history of diabetic foot ulcer | CPT/HCPCS: 99213 ==

== ENCOUNTER → 2022-11-10 10:32 | Outpatient (CLI) | payer BC, SELFPAY ==
[2022-11-10 11:53] LABS: Creatinine Urine Random 35.1 mg/dL
[2022-11-10 11:59] LABS: Microalbumi Creatinin Ratio Ur 239.3 ug/mg CR (<30); Microalbumin Urine Random 8.4 mg/dL (0-1.6)
[2022-11-10 12:05] LABS: BUN Creatinine Ratio 20.3 (6-22); Blood Urea Nitrogen 13 mg/dL (9-20); Calcium 8.6 mg/dL (8.4-10.2); Carbon Dioxide 24 mmol/L (22-32); Chloride 104 mmol/L (98-107); Cholesterol 124 mg/dL (140-199); Estimated Glomerular Filt Rate > 60 mL/min (>60); Glucose 122 mg/dL (80-110); HDL Cholesterol 71 mg/dL (40-60); HEMOLYSIS 41 (0-50); LDL Cholesterol Calculated 40 mg/dL (<100); Potassium 4.4 mmol/L (3.4-5.1); Sodium 136 mmol/L (137-145); Triglycerides 64 mg/dL (35-150)
== END ==
PROVIDERS: PCP Family Medicine; Referring Provider Family Medicine; Visit Provider Family Medicine
DX: E11.40 Type 2 diabetes mellitus with diabetic neuropathy, unspecified (principal); E78.2 Mixed hyperlipidemia; I10 Essential (primary) hypertension; E11.43 Type 2 diabetes mellitus with diabetic autonomic (poly)neuropathy; N18.2 Chronic kidney disease, stage 2 (mild)
CPT/HCPCS: 36415; 80048; 80061; 82043; 82570

== ENCOUNTER → 2024-09-01 10:15 | Outpatient (CLI) | payer MEDICARE, OTHER, SELFPAY ==
[2024-09-01 10:51] LABS: Hematocrit 38.5 % (41-53); Hemoglobin 13.2 g/dL (13.5-17.5); Mean Corpuscular HGB Conc 34.3 % (30-36); Mean Corpuscular Hemoglobin 32.2 PG (26-34); Mean Corpuscular Volume 93.7 fL (80-100); Platelet Count 237 X10^3/uL (150-400); Red Blood Cell Count 4.11 X10^6/uL (4.5-5.9); Red Cell Distribution Width 13.4 % (11.6-14.8); White Blood Cell Count 7.4 X10^3/uL (4.5-11.0)
[2024-09-01 11:12] LABS: Hemoglobin A1C% w Est Avg Glu 6.7 % (4.0-6.0)
[2024-09-01 11:35] LABS: Alanine Aminotransferase 47 IU/L (<50); Albumin 4.2 g/dL (3.5-5.0); Albumin Globulin Ratio 1.6 (1.0-2.8); Alkaline Phosphatase 54 U/L (38-126); Aspartate Aminotransferase 35 IU/L (17-59); BUN Creatinine Ratio 26.2 (6-22); Bilirubin Total 0.5 mg/dL (0.2-1.3); Blood Urea Nitrogen 22 mg/dL (9-20); Calcium 9.1 mg/dL (8.4-10.2); Carbon Dioxide 24 mmol/L (22-32); Chloride 103 mmol/L (98-107); Cholesterol 131 mg/dL (140-199); Estimated Glomerular Filt Rate > 60 mL/min (>60); Globulin 2.6 g/dL (1.7-4.1); Glucose 137 mg/dL (70-99); HDL Cholesterol 80 mg/dL (40-60); HEMOLYSIS < 15 (0-50); LDL Cholesterol Calculated 26 mg/dL (<100); Sodium 135 mmol/L (137-145); Total Protein 6.8 g/dL (6.3-8.2); Triglycerides 124 mg/dL (35-150)
[2024-09-01 12:01] LABS: Creatinine Urine Random 74.84 mg/dL
[2024-09-01 12:06] LABS: Prostate Specific Antigen Scrn 0.753 ng/mL (0.1-4.0)
[2024-09-01 12:07] LABS: Microalbumin Urine Random 10.1 mg/dL (0-1.6)
[2024-09-02 08:36] LABS: CRP, High Sensitivity 1.07 mg/L (0.00-3.00)
== END ==
PROVIDERS: PCP Family Medicine; Referring Provider Family Medicine; Visit Provider Family Medicine
DX: E11.43 Type 2 diabetes mellitus with diabetic autonomic (poly)neuropathy (principal); Z12.5 Encounter for screening for malignant neoplasm of prostate; E87.1 Hypo-osmolality and hyponatremia; E78.5 Hyperlipidemia, unspecified; E11.40 Type 2 diabetes mellitus with diabetic neuropathy, unspecified; I73.9 Peripheral vascular disease, unspecified; I10 Essential (primary) hypertension
CPT/HCPCS: 36415; 80053; 80061; 82043; 82306; 82570; 83036; 85027; 86140; G0103

== ENCOUNTER → 2025-01-28 17:45 | Outpatient (CLI) | payer MEDICARE, OTHER, SELFPAY ==
[2025-01-28 18:38] LABS: Hemoglobin A1C% w Est Avg Glu 7.0 % (4.0-6.0)
== END ==
PROVIDERS: PCP Family Medicine; Referring Provider Family Medicine; Visit Provider Family Medicine
DX: E11.40 Type 2 diabetes mellitus with diabetic neuropathy, unspecified (principal)
CPT/HCPCS: 36415; 83036

== ENCOUNTER → 2025-01-30 14:35 | Outpatient (CLI) | payer MEDICARE, OTHER, SELFPAY ==
[2025-01-30 16:36] LABS: Alanine Aminotransferase 39 IU/L (<50); Albumin 4.5 g/dL (3.5-5.0); Albumin Globulin Ratio 1.6 (1.0-2.8); Alkaline Phosphatase 66 U/L (38-126); Blood Urea Nitrogen 20 mg/dL (9-20); Calcium 9.5 mg/dL (8.4-10.2); Carbon Dioxide 25 mmol/L (22-32); Chloride 102 mmol/L (98-107); Estimated Glomerular Filt Rate > 60 mL/min (>60); Globulin 2.8 g/dL (1.7-4.1); Glucose 92 mg/dL (70-99); HEMOLYSIS < 15 (0-50); Potassium 5.1 mmol/L (3.4-5.1); Sodium 135 mmol/L (137-145); Total Protein 7.3 g/dL (6.3-8.2)
== END ==
PROVIDERS: PCP Family Medicine; Referring Provider Family Medicine; Visit Provider Family Medicine
DX: I16.0 Hypertensive urgency (principal)
CPT/HCPCS: 36415; 80053